=== PATIENT | male | born 1970 | race Caucasian/White ===

== ENCOUNTER 2021-11-06 18:17 | Inpatient (IN) | payer MEDICARE ==
[~2021-11-06] VITALS: Ht 188 cm; Wt 130.9 kg
[2021-11-06 18:46] LABS: HEMOGLOBIN 14.4 gm/dl (14.0-17.5); RED BLOOD COUNT 5.29 M/UL (4.20-5.50); WHITE BLOOD COUNT 9.7 K/UL (4.5-11.0)
[2021-11-06 19:08] LABS: BUN/CREATININE RATIO 17 (0-10)
--- NOTE | 2021-11-07 01:29 | NUR ---
late entry 11/07/21 0045 TR band removed, no bleeding at site, pulse is WNL, no complaints of pain, no hematoma, patient tolerated well
[2021-11-07 05:53] LABS: HEMOGLOBIN 13.3 gm/dl (14.0-17.5); RED BLOOD COUNT 4.92 M/UL (4.20-5.50); WHITE BLOOD COUNT 7.5 K/UL (4.5-11.0)
[2021-11-07 07:13] LABS: BUN/CREATININE RATIO 21 (0-10)
[2021-11-07] MEDS ORDERED: AMLODIPINE-BEN1 EACH PO (10:21)
[2021-11-07] MEDS ORDERED: BACTRIM DS TAB1 EACH PO (10:21)
[2021-11-07] MEDS ORDERED: HYDROCHLOROTH12.5 M1 PO (10:21)
[2021-11-07] MEDS ORDERED: ASPIRIN EC81 MG PO (10:22)
[2021-11-08] MEDS ORDERED: BRILINTA 90 MG90 MG PO (07:13)
[2021-11-08] MEDS ORDERED: ATORVASTATIN CA20 MG PO (07:13)
[2021-11-08] MEDS ORDERED: LOPRESSOR 25 MG25 MG PO (07:13)
[2021-11-08] MEDS ORDERED: NITROGLYCERIN0.4 MG SL (07:13)
[2021-11-08] MEDS ORDERED: LISINOPRIL10 MG PO (07:13)
== END 2021-11-08 11:04 | disposition home or self-care (01) | DRG 247 ==
LOC: ER1 18:17 → CDU 18:32 → CCU 20:58
PROVIDERS: Emergency Medicine; ADMIT Internal Medicine Cardiovascular Disease
PROC: 4A023N7 Measurement of Cardiac Sampling and Pressure, Left Heart, Percutaneous Approach (ICD-10-PCS; principal; 2021-11-06)
PROC: 027034Z Dilation of Coronary Artery, One Artery with Drug-eluting Intraluminal Device, Percutaneous Approach (ICD-10-PCS; 2021-11-06)
PROC: 02C13ZZ Extirpation of Matter from Coronary Artery, Two Arteries, Percutaneous Approach (ICD-10-PCS; 2021-11-06)
PROC: B2111ZZ Fluoroscopy of Multiple Coronary Arteries using Low Osmolar Contrast (ICD-10-PCS; 2021-11-06)
PROC: B2151ZZ Fluoroscopy of Left Heart using Low Osmolar Contrast (ICD-10-PCS; 2021-11-06)
PROC: B24BZZZ Ultrasonography of Heart with Aorta (ICD-10-PCS; 2021-11-07)
DX: I21.19 ST elevation (STEMI) myocardial infarction involving other coronary artery of inferior wall (principal); I47.1 Supraventricular tachycardia; Z20.822 Contact with and (suspected) exposure to COVID-19; I25.5 Ischemic cardiomyopathy; E78.5 Hyperlipidemia, unspecified; I10 Essential (primary) hypertension; Z98.890 Other specified postprocedural states; Z88.1 Allergy status to other antibiotic agents; Z82.49 Family history of ischemic heart disease and other diseases of the circulatory system; Z79.82 Long term (current) use of aspirin; Z90.49 Acquired absence of other specified parts of digestive tract
CPT/HCPCS: ECHO; 36415; 71045; 80048; 80053; 80061; 82550; 82553; 83036; 83880; 84484; 85025; 85347; 85610; 85730; 92973; 93005; 93306; 96374; 96375; 99152; 99153; 99285; C1725; C1757; C1769; C1874; C1887; C1894; J0461; J1644; J2060; J2250; J2270; J2370; J3010; J3246; J7040; Q9965; U0002